=== PATIENT | male | born 1940 | race American Indian/Alaskan Native ===

== ENCOUNTER 2022-07-29 16:43 | Emergency (ER) | payer MEDICARE ==
[2022-07-29 20:23] VITALS: BP 155/81
== END 2022-07-30 00:44 | disposition left against medical advice (07) ==
LOC: ED 16:43
DX: R06.02 Shortness of breath (principal); R07.9 Chest pain, unspecified; Z53.21 Procedure and treatment not carried out due to patient leaving prior to being seen by health care provider